=== PATIENT | male | born 1975 | race Caucasian/White ===

== ENCOUNTER 2023-03-07 07:24 | Emergency (ER) | payer BC ==
[~2023-03-07] VITALS: Ht 175.3 cm; Wt 85.9 kg
[2023-03-07] MEDS ORDERED: LISINOPRIL10 MG PO (07:56)
[2023-03-07 09:55] VITALS: O2SAT 98
[2023-03-07] MEDS ORDERED: CLEOCIN HCL300 MG PO (10:16)
== END 2023-03-07 10:27 | disposition home or self-care (01) ==
LOC: FSED 07:32
DX: N50.89 Other specified disorders of the male genital organs (principal); N49.2 Inflammatory disorders of scrotum; I10 Essential (primary) hypertension
CPT/HCPCS: 76870; 81003; 99283